=== PATIENT | female | born 1950 | race Caucasian/White ===

== ENCOUNTER 2016-12-25 08:53 | Outpatient (CLI) | payer MEDICARE, OTHER ==
--- NOTE | 2016-12-25 16:11 | MRI Report ---
MRI ANGIOGRAM OF THE AORTA AND DISTAL VESSELS (MRA RUNOFF). CLINICAL INDICATION: 4 weeks of right hip pain. TECHNIQUE: Routine MRA protocol in the abdomen/pelvis, thighs and lower legs. Patient did receive 5 mL Gadavist for this procedure. FINDINGS: Distal aorta is 1.4 cm in diameter and is smooth-walled. No aneurysm. No significant tortuosity. Left and right common, external, and internal iliac arteries are widely patent and have a normal appe arance. No stenosis. In both the left and right legs, the common femoral, superficial femoral, popliteal arteries are norm al in appearance, widely patent with no stenosis, occlusion or aneurysm. The popliteal arteries, tibioperoneal trunk, and the anterior tibial, posterior tibial, and peroneal vessels are intact and there are 3 vessels at the ankle bilaterally. Large ilurc-vg-vyup images show no areas of concern involving the femurs, tibias, or fibulas of the l ower extremities. No muscular abnormalities. IMPRESSION: 1. Normal magnetic resonance angiogram of the lower abdominal aorta, pelvis, and both legs. Referring Provider Line: [phone] SITE ID: [id number]
== END 2016-12-25 08:54 | disposition home or self-care (01) ==
LOC: DI 08:53
DX: M25.551 Pain in right hip (principal); M79.661 Pain in right lower leg
CPT/HCPCS: 73725; A9585

== ENCOUNTER 2017-08-19 14:12 | Outpatient (CLI) | payer MEDICARE, OTHER ==
--- NOTE | 2017-08-20 11:36 | DEXA Report ---
Procedure Date: 08/19/2017 Accession Number: [id number] / [id number] Procedure: DEX - Dexa Spine and/or Hip CPT Code: FULL RESULT: EXAM: Dexa Spine and/or Hip DATE: 08/19/2017 2:52 PM CLINICAL HISTORY: SCREEN FOR OSTEOPOROSIS TECHNIQUE: Dual energy x-ray absorptiometry (DXA) was performed on a USINE IO System. Regions measured are the AP Spine, femoral neck, and if needed forearm. COMPARISON: None. In accordance with the International Society for Clinical Densitometry (ISCD) guidelines, data from previous exams may be reanalyzed using current recommendations and techniques. This is done to allow a more accurate basis for comparison with the current study. FINDINGS: The data for the lumbar spine is as follows: BMD (g/cm/cm) T-SCORE Z-SCORE REGION L1 1.155 0.2 0.7 L2 1.417 1.8 2.3 L3 1.643 3.7 4.2 L4 1.571 3.1 3.6 TOTAL 1.466 2.4 2.9 NOTE: All evaluable vertebrae are used for classification The data for the hip is as follows: BMD (g/cm/cm) T-SCORE Z-SCORE REGION Neck 0.950 -0.6 0.2 TOTAL 0.913 -0.8 -0.3 NOTE: The femoral neck or total proximal femur, whichever is lowest, is used for classification. IMPRESSION: THE WHO CLASSIFICATION BASED ON THE INTERNATIONAL REFERENCE STANDARD IS NORMAL. THE FRACTURE RISK IS NOT INCREASED. RECOMMENDATION: Patients with diagnosis of osteoporosis or osteopenia should have regular bone mineral density assessment. For those eligible for Medicare, routine testing is allowed once every 2 years. Testing frequency can be increased for patients who have rapidly progressing disease or for those who are receiving medical therapy to restore bone mass. COMMENT: World Health Organization (WHO) definitions for osteoporosis and osteopenia: NORMAL BMD: T-score at -1.0 or higher, fracture risk is low OSTEOPENIA BMD: T-score between -1.0 and -2.5, fracture risk is increased. OSTEOPOROSIS BMD: T-score at -2.5 or lower, fracture risk is high. National Osteoporosis Foundation recommends: 1. Obtain adequate dietary calcium (at least 1200 mg per day) and vitamin D (400-800 international units per day). 2. Participate, as appropriate, in regular weightbearing and muscle-strengthening exercise. 3. Avoid tobacco use and reduce alcohol and caffeine intake. 4. For more detailed information see the website at www.NOF.org.
== END 2017-08-19 14:13 | disposition home or self-care (01) ==
LOC: DI 14:12
PROVIDERS: ATTEND Internal Medicine Rheumatology
DX: Z13.820 Encounter for screening for osteoporosis (principal); Z79.52 Long term (current) use of systemic steroids
CPT/HCPCS: 77080

== ENCOUNTER 2017-09-08 13:54 | Outpatient (CLI) | payer MEDICARE, OTHER ==
--- NOTE | 2017-09-10 11:05 | Mammography Report ---
Procedure Date: 09/08/2017 Accession Number: [id number] / [id number] Procedure: MGN - Screening Mammo Dig Bilat CPT Code: FULL RESULT: EXAM: Screening Mammo Dig Bilat DATE: 09/08/2017 2:14 PM CLINICAL HISTORY: 67-year-old female presents for screening mammogram. TECHNIQUE: Bilateral CC and MLO views were obtained. COMPARISON: 11/12/2014, 04/26/2013, 11/10/2011, 05/01/2009. FINDINGS: The breasts demonstrate scattered fibroglandular densities bilaterally. Typically benign coarse calcifications are seen bilaterally. No suspicious masses, clustered microcalcifications, or regions of architectural distortion are identified. IMPRESSION: Benign findings RECOMMENDATION: Routine annual screening unless otherwise clinically indicated. BIRADS CATEGORY 2: Benign findings STANDARD QUALIFYING STATEMENTS: 1. This examination was reviewed with the aid of Computer-Aided Detection (CAD). 2. A negative or benign imaging report should not delay biopsy if clinically suspicious findings are present. Consider surgical consultation if warrented. More than 5% of cancers are not identified by imaging. 3. Dense breasts may obscure an underlying neoplasm.
== END 2017-09-08 13:55 | disposition home or self-care (01) ==
LOC: DI.N 13:54
PROVIDERS: ATTEND Nurse Practitioner Family
DX: Z12.31 Encounter for screening mammogram for malignant neoplasm of breast (principal)
CPT/HCPCS: 77067